=== PATIENT | female | born 1985 | race Asian ===

== ENCOUNTER 2019-06-03 07:50 | Inpatient (IN) | payer OTHER ==
[~2019-06-03] VITALS: Ht 162.6 cm; Wt 78.2 kg
[2019-06-03] MEDS ORDERED: LACTATED RINGER'S 1,000 ML IV SCH (08:21)
[2019-06-03 08:24] VITALS: Ht 162.6 cm; Wt 78.2 kg
[2019-06-03] MEDS ORDERED: OXYTOCIN 30 UNITS/LR 500 ML IV PRN ×2 (08:30→12:00)
[2019-06-03] MEDS ORDERED: LIDOCAINE 1% (MPF) 30 ML INJ INJ PRN (08:30)
[2019-06-03] MEDS ORDERED: IBUPROFEN 600 MG TAB PO PRN (08:30)
[2019-06-03] MEDS ORDERED: CARBOPROST 250 MCG/ML VIAL IM PRN ×2 (08:30→12:00)
[2019-06-03] MEDS ORDERED: BUTORPHANOL 2 MG INJ IV PRN (08:30)
[2019-06-03] MEDS ORDERED: MISOPROSTOL 200 MCG TAB PR PRN ×2 (08:30→12:00)
[2019-06-03] MEDS ORDERED: OXYTOCIN 30 UNITS/LR 500 ML IV SCH ×3 (08:30→11:41)
[2019-06-03] MEDS ORDERED: METHYLERGONOVINE 0.2 MG INJ IM PRN ×2 (08:30→12:00)
[2019-06-03 10:30] VITALS: BP 100/54; PULSE 76; RESP 17
[2019-06-03] MEDS ORDERED: ZOLPIDEM 5 MG TAB PO PRN (12:00)
[2019-06-03] MEDS ORDERED: NACL 0.9% 3 ML SYG IV SCH (12:00)
[2019-06-03] MEDS ORDERED: BENZOCAINE 20% 56 ML SPRAY TOP PRN (12:00)
[2019-06-03] MEDS ORDERED: WITCH HAZEL/GLYCERIN PAD PR PRN (12:00)
[2019-06-03] MEDS ORDERED: OXYCODONE/ASPIRIN (4.88/325) TAB PO PRN (12:00)
[2019-06-03] MEDS: IBUPROFEN 600 MG TAB PO SCH ×3 (12:44→23:46)
[2019-06-03] MEDS: LANOLIN HPA 1 PKT TOP PRN (15:29)
[2019-06-03 16:10] VITALS: BP 100/56; PULSE 83; RESP 18
[2019-06-03 20:00] VITALS: BP 104/54; PULSE 74; RESP 20
[2019-06-03] MEDS: SENNA/DOCUSATE NA (8.6MG/50MG) TAB PO SCH (20:29)
[2019-06-04 04:00] VITALS: BP 93/53; PULSE 64; RESP 20
[2019-06-04] MEDS: IBUPROFEN 600 MG TAB PO SCH ×3 (06:14→17:52)
[2019-06-04 08:10] VITALS: BP 100/55; PULSE 75; RESP 17
[2019-06-04] MEDS: SENNA/DOCUSATE NA (8.6MG/50MG) TAB PO SCH ×2 (09:17→21:00)
[2019-06-04 16:00] VITALS: BP 96/63; PULSE 77; RESP 16
[2019-06-04 20:00] VITALS: BP 107/52; PULSE 72; RESP 20
[2019-06-05] MEDS: IBUPROFEN 600 MG TAB PO SCH ×4 (01:38→14:20)
[2019-06-05 04:21] VITALS: BP 108/62; PULSE 63; RESP 20
[2019-06-05] MEDS: SENNA/DOCUSATE NA (8.6MG/50MG) TAB PO SCH (07:58)
[2019-06-05] MEDS: LANOLIN HPA 1 PKT TOP PRN (07:59)
[2019-06-05 08:00] VITALS: BP 101/61; PULSE 60; RESP 18
[2019-06-05] MEDS ORDERED: DIPHTH/TET/ACEL PERTUSS (ADULT) 0.5 ML VIAL IM* ONE (09:00)
[2019-06-05 16:00] VITALS: BP 110/60; PULSE 81; RESP 18
== END 2019-06-05 18:15 | disposition home or self-care (01) | DRG 807 ==
LOC: OBT 07:50 → L-D 07:53 → PP1 10:19
PROVIDERS: ADMIT Obstetrics & Gynecology; ATTEND Obstetrics & Gynecology
PROC: 10E0XZZ Delivery of Products of Conception, External Approach (ICD-10-PCS; principal; 2019-06-03)
DX: O80 Encounter for full-term uncomplicated delivery (principal); Z37.0 Single live birth; Z3A.39 39 weeks gestation of pregnancy
CPT/HCPCS: 85025; 85610; 85730; 86592; 86850; 86900; 86901; 87340; J2590; J7120